=== PATIENT | female | born 1965 | race American Indian/Alaskan Native ===

== ENCOUNTER 2017-07-31 20:33 | Emergency (ER) | payer MEDICARE ==
[2017-07-31 21:10] VITALS: BP 103/69
[2017-08-01] MEDS ORDERED: NORCO 7.5/325 PO ONE (00:10)
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
--- NOTE | 2017-08-01 02:15 | XRay Report ---
FINAL REPORT EXAM: XR FOOT 2V RT HISTORY: fall with foot swelling TECHNIQUE: Two views of the right foot PRIORS: None. FINDINGS: The bones are normally aligned and mineralized. The joint spaces are well-preserved. There is no evidence of acute fracture. There is mild dorsal soft tissue swelling at the level of the metatarsals. IMPRESSION: No evidence of acute fracture or subluxation.
--- NOTE | 2017-08-01 02:15 | XRay Report ---
FINAL REPORT EXAM: XR TIBIA FIBULA 2V RT HISTORY: status post fall TECHNIQUE: AP and lateral views of the right tibia fibula PRIORS: None. FINDINGS: The bones are normally aligned and mineralized. There is no evidence of fracture or subluxation. The soft tissues are unremarkable. IMPRESSION: No evidence of acute injury.
== END 2017-08-01 02:30 | disposition home or self-care (01) ==
LOC: ED 20:33
DX: S93.401A Sprain of unspecified ligament of right ankle, initial encounter (principal); I10 Essential (primary) hypertension; F17.200 Nicotine dependence, unspecified, uncomplicated; Z88.2 Allergy status to sulfonamides
CPT/HCPCS: 99283

== ENCOUNTER 2017-11-20 09:38 | Emergency (ER) | payer MEDICARE ==
[2017-11-20] MEDS ORDERED: TORADOL IV ONE (10:21)
[2017-11-20] MEDS ORDERED: ATIVAN IV ONE (10:21)
[2017-11-20] MEDS ORDERED: BENADRYL IV ONE (10:21)
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
[2017-11-20 11:58] LABS: BUN/Creatinine Ratio 13; Blood Urea Nitrogen 9 mg/dL (7-17); Calcium 9.4 mg/dL (8.4-10.2); Hemolysis Index 109
--- NOTE | 2017-11-20 12:04 | XRay Report ---
FINAL REPORT EXAM: XR SPINE THORACIC 3V HISTORY: acute on chronic upper back pain TECHNIQUE: Four views of thoracic spine. PRIORS: None currently available. FINDINGS: Kyphotic alignment is intact. Mild degenerative discs in the mid and lower thoracic spine. No fracture. No subluxation. Prevertebral soft tissues are unremarkable. Mild levocurvature or scoliosis of the thoracolumbar spine. Bilateral laminectomies at T11 and T12. No scoliosis. No suspicious osseous lesions. IMPRESSION: Mild levo curvature or scoliosis of the thoracolumbar spine. Mild degenerative discs in the mid and lower thoracic spine.
--- NOTE | 2017-11-20 12:05 | XRay Report ---
FINAL REPORT EXAM: XR SPINE CERVICAL 2-3V HISTORY: bilateral posterior lower neck pain TECHNIQUE: Four views cervical spine. PRIORS: None currently available. FINDINGS: Mild straightening of the normal lordotic alignment probably related to anterior cervical device at C3-C6. No loosening or dislodgement. [id number] degenerative disc at C2-C3 and C6-C7. Mild posterior subluxation at C2-C3. No fracture. Prevertebral soft tissues are unremarkable. Lateral masses of C1 are aligned with C2. No scoliosis. No suspicious osseous lesions. No vertebral anomalies. IMPRESSION: Intact postsurgical changes and hardware. Straightening of the normal lordotic alignment. Degenerative discs at C2-C3 and C6-C7.
--- NOTE | 2017-11-20 12:06 | XRay Report ---
FINAL REPORT EXAM: XR CHEST 1V AP HISTORY: chest pain TECHNIQUE: Frontal chest x-ray. PRIORS: None currently available. FINDINGS: Cardiac silhouette is within normal limits. There is no effusion. There is no pneumothorax. There is no consolidation. There are no suspicious osseous lesions. IMPRESSION: No acute cardiopulmonary findings.
[2017-11-20 12:10] LABS: Basophils # (Auto) 0.1 K/mm3 (0.0-0.1); Basophils % (Auto) 0.7 % (0.0-1.8); Eosinophils # (Auto) 0.3 K/mm3 (0.0-0.4); Eosinophils % (Auto) 4.5 % (0.0-4.3); Hematocrit 40.1 % (30.3-42.9); Hemoglobin 13.3 gm/dl (10.1-14.3); Lymphocytes # (Auto) 2.6 K/mm3 (1.2-5.4); Lymphocytes % (Auto) 34.2 % (13.4-35.0); Mean Corpuscular HGB Conc 33 % (30-34); Mean Corpuscular Hemoglobin 32 pg (28-32); Mean Corpuscular Volume 95 fl (79-97); Monocytes # (Auto) 0.5 K/mm3 (0.0-0.8); Monocytes % (Auto) 6.8 % (0.0-7.3); Platelet Count 183 K/mm3 (140-440); Red Blood Count 4.21 M/mm3 (3.65-5.03); Red Cell Distribution Width 14.9 % (13.2-15.2)
[2017-11-20 14:42] VITALS: BP 136/89
== END 2017-11-20 13:35 | disposition home or self-care (01) ==
LOC: ED 09:38
DX: G44.209 Tension-type headache, unspecified, not intractable (principal); M54.2 Cervicalgia; M54.89 Other dorsalgia; R07.89 Other chest pain; I10 Essential (primary) hypertension; E11.40 Type 2 diabetes mellitus with diabetic neuropathy, unspecified; F32.9 Major depressive disorder, single episode, unspecified; F41.9 Anxiety disorder, unspecified; F17.200 Nicotine dependence, unspecified, uncomplicated; Z88.2 Allergy status to sulfonamides
CPT/HCPCS: 36415; 71045; 72040; 72072; 80048; 84484; 85025; 99284; J2060; J1200; J1885

== ENCOUNTER 2018-07-12 13:24 | Emergency (ER) | payer MEDICARE ==
--- NOTE | 2018-07-12 13:36 | Emergency Department Report ---
Blank Doc - Documentation Documentation: This is a 52-year-old female that presents with URI symptoms. This initial assessment/diagnostic orders/clinical plan/treatment(s) is/are subject to change based on patient's health status, clinical progression and re- assessment by fellow clinical providers in the ED. Further treatment and workup at subsequent clinical providers discretion. Patient/guardians urged not to elope from the ED as their condition may be serious if not clinically assessed and managed. Initial orders include: 1- Patient sent to [facility] for further evaluation and treatment 2- CXR
[2018-07-12 13:39] VITALS: BP 132/108
--- NOTE | 2018-07-12 14:15 | XRay Report ---
CHEST 2 VIEWS INDICATION: Cough. COMPARISON: 09/17/2017 FINDINGS: PA and lateral chest radiographs demonstrate stable cardiomediastinal silhouette/borderline cardiomegaly and slightly prominent lung markings centrally. No pleural effusions or CHF. Right hemidiaphragm again slightly higher than the left. Lower cervical plate and screw fusion hardware and lower thoracic spine degenerative spurring and disc narrowing again noted. CONCLUSION: No acute chest process or significant interval change with various findings, as above. Thank you for the opportunity to participate in this patient's care.
--- NOTE | 2018-07-12 15:55 | Emergency Department Report ---
- General Chief Complaint: Upper Respiratory Infection Stated Complaint: UPPER RESPIRATORY ISSUES Time Seen by Provider: 07/12/18 13:35 Source: patient Mode of arrival: Ambulatory Limitations: No Limitations - History of Present Illness Initial Comments: 52-year-old female presents to ED with a 2 week history of cough, fever, sore throat, right ear pain, wheezing. MD Complaint: fever, cough, sore throat, other (right ear pain) -: week(s) (2) Severity: moderate Consistency: constant Improves With: nothing Worsens With: nothing Associated Symptoms: fever, sore throat, cough, shortness of breath (with w heezing) - Related Data Previous Rx's Medication Instructions Recorded Last Taken Type ALPRAZolam [Xanax TAB] 0.25 mg PO Q8H PRN #9 tablet 09/19/17 Unknown Rx Clobetasol 0.05% [Temovate] 1 applic TP BID #1 tube 09/19/17 Unknown Rx Mirtazapine [Remeron] 15 mg PO QHS #30 tablet 09/19/17 Unknown Rx NIFEdipine XL [Procardia Xl] 60 mg PO Q12HR #60 tablet 09/19/17 Unknown Rx Prednisone [predniSONE 5 mg (6-Day 5 mg PO .TAPER #1 tab.ds.pk 09/19/17 Unknown Rx Pack, 21 Tabs)] diphenhydrAMINE/ZINC 2% [Banophen 1 applic TP Q8H PRN #1 tube 09/19/17 Unknown Rx Anti-Itch] hydroCHLOROthiazide [HCTZ] 25 mg PO QDAY #30 tablet 09/19/17 Unknown Rx oxyCODONE /ACETAMINOPHEN [Percocet 1 tab PO Q6H PRN #14 tablet 09/19/17 Unknown Rx 5/325 mg] ALBUTEROL Inhaler(NF) [VENTOLIN 1 puff IH Q4HR PRN #1 inha 07/12/18 Unknown Rx Inhaler(NF)] Amoxicillin [Amoxicillin TAB] 875 mg PO BID 10 Days #20 tablet 07/12/18 Unknown Rx Benzonatate [Tessalon Perles] 100 mg PO Q8HR PRN #20 capsule 07/12/18 Unknown Rx Naproxen [Naprosyn] 500 mg PO BID #20 tablet 07/12/18 Unknown Rx predniSONE [Deltasone] 50 mg PO QDAY #5 tab 07/12/18 Unknown Rx Allergies Allergy/AdvReac Type Severity Reaction Status Date / Time Sulfa (Sulfonamide Allergy Unknown Verified 09/24/16 21:41 Antibiotics) ED Review of Systems ROS: Stated complaint: UPPER RESPIRATORY ISSUES Other details as noted in HPI Comment: All other systems reviewed and negative Constitutional: fever ENT: ear pain, throat pain Respiratory: cough, wheezing ED Past Medical Hx - Past Medical History Previous Medical History?: Yes Hx Hypertension: Yes Hx Congestive Heart Failure: No Hx Diabetes: No Hx Psychiatric Treatment: Yes (anxiety) Hx Asthma: No Hx COPD: No Additional medical history: dermatiositis with lupus components - Surgical History Past Surgical History?: Yes Additional Surgical History: back surgery,herniated c-spine - Social History Smoking Status: Current Every Day Smoker Substance Use Type: Alcohol - Medications Home Medications: Home Medications Medication Instructions Recorded Confirmed Last Taken Type ALPRAZolam [Xanax TAB] 0.25 mg PO Q8H PRN #9 tablet 09/19/17 Unknown Rx Clobetasol 0.05% [Temovate] 1 applic TP BID #1 tube 09/19/17 Unknown Rx Mirtazapine [Remeron] 15 mg PO QHS #30 tablet 09/19/17 Unknown Rx NIFEdipine XL [Procardia Xl] 60 mg PO Q12HR #60 tablet 09/19/17 Unknown Rx Prednisone [predniSONE 5 mg (6-Day 5 mg PO .TAPER #1 tab.ds.pk 09/19/17 Unknown Rx Pack, 21 Tabs)] diphenhydrAMINE/ZINC 2% [Banophen 1 applic TP Q8H PRN #1 tube 09/19/17 Unknown Rx Anti-Itch] hydroCHLOROthiazide [HCTZ] 25 mg PO QDAY #30 tablet 09/19/17 Unknown Rx oxyCODONE /ACETAMINOPHEN [Percocet 1 tab PO Q6H PRN #14 tablet 09/19/17 Unknown Rx 5/325 mg] ALBUTEROL Inhaler(NF) [VENTOLIN 1 puff IH Q4HR PRN #1 inha 07/12/18 Unknown Rx Inhaler(NF)] Amoxicillin [Amoxicillin TAB] 875 mg PO BID 10 Days #20 tablet 07/12/18 Unknown Rx Benzonatate [Tessalon Perles] 100 mg PO Q8HR PRN #20 capsule 07/12/18 Unknown Rx Naproxen [Naprosyn] 500 mg PO BID #20 tablet 07/12/18 Unknown Rx predniSONE [Deltasone] 50 mg PO QDAY #5 tab 07/12/18 Unknown Rx ED Physical Exam - General Limitations: No Limitations General appearance: alert, in no apparent distress - Head Head exam: Present: atraumatic, normocephalic - Eye Eye exam: Present: normal appearance - ENT ENT exam: Present: mucous membranes moist. Absent: TM's normal bilaterally (right TM erythematous w/ bulging TM) - Neck Neck exam: Present: normal inspection - Respiratory Respiratory exam: Present: normal lung sounds bilaterally. Absent: respiratory distress, wheezes - Cardiovascular Cardiovascular Exam: Present: regular rate, normal rhythm - GI/Abdominal GI/Abdominal exam: Absent: distended - Extremities Exam Extremities exam: Present: normal inspection - Neurological Exam Neurological exam: Present: alert, oriented X3 - Psychiatric Psychiatric exam: Present: normal affect, normal mood - Skin Skin exam: Present: warm, dry, intact, normal color ED Course Vital Signs 07/12/18 13:36 Temperature 98.1 F Pulse Rate 84 Respiratory 18 Rate Blood Pressure 132/108 O2 Sat by Pulse 97 Oximetry ED Medical Decision Making - Radiology Data Radiology results: report reviewed, image reviewed - Medical Decision Making - CXR negative - Right otitis media - no wheezing at this time - will d/c w/ prednisione, tessalon, albuterol, amoxil - outpt f/u advised - Differential Diagnosis bronchitis, OM, pneumonia Critical care attestation.: If time is entered above; I have spent that time in minutes in the direct care of this critically ill patient, excluding procedure time. ED Disposition Clinical Impression: Bronchitis, Otitis media Disposition: DC-01 TO HOME OR SELFCARE Is pt being admited?: No Condition: Stable Instructions: Otitis Media (ED), Acute Bronchitis (ED) Prescriptions: Amoxicillin [Amoxicillin TAB] 875 mg PO BID 10 Days #20 tablet predniSONE [Deltasone] 50 mg PO QDAY #5 tab Naproxen [Naprosyn] 500 mg PO BID #20 tablet Benzonatate [Tessalon Perles] 100 mg PO Q8HR PRN #20 capsule PRN Reason: Cough ALBUTEROL Inhaler(NF) [VENTOLIN Inhaler(NF)] 1 puff IH Q4HR PRN #1 inha PRN Reason: Wheezing Referrals: [facility] MD JAVY [Primary Care Provider] - 3-5 Days PRIMARY CAREMD [Referring] - 3-5 Days Time of Disposition: 15:55
== END 2018-07-12 16:05 | disposition home or self-care (01) ==
LOC: ED 13:24 → MERGE 13:24 → ED 16:05
DX: J40 Bronchitis, not specified as acute or chronic (principal); H66.91 Otitis media, unspecified, right ear; I10 Essential (primary) hypertension; F41.9 Anxiety disorder, unspecified; F17.200 Nicotine dependence, unspecified, uncomplicated
CPT/HCPCS: 71046

== ENCOUNTER 2018-11-22 05:15 | Emergency (ER) | payer MEDICARE ==
[2018-11-22 06:03] LABS: Basophils % (Auto) 0.4 % (0.0-1.8); Eosinophils # (Auto) 0.1 K/mm3 (0.0-0.4); Eosinophils % (Auto) 1.5 % (0.0-4.3); Hematocrit 41.3 % (30.3-42.9); Hemoglobin 13.9 gm/dl (10.1-14.3); Lymphocytes # (Auto) 2.1 K/mm3 (1.2-5.4); Lymphocytes % (Auto) 20.9 % (13.4-35.0); Mean Corpuscular HGB Conc 34 % (30-34); Mean Corpuscular Volume 92 fl (79-97); Monocytes # (Auto) 0.6 K/mm3 (0.0-0.8); Monocytes % (Auto) 5.8 % (0.0-7.3); Platelet Count 200 K/mm3 (140-440); Red Blood Count 4.51 M/mm3 (3.65-5.03); Red Cell Distribution Width 13.8 % (13.2-15.2)
[2018-11-22 06:21] LABS: Calcium 9.7 mg/dL (8.4-10.2)
[2018-11-22 07:29] VITALS: BP 133/92
[2018-11-22] MEDS ORDERED: PEPCID IV ONE (08:03)
[2018-11-22] MEDS ORDERED: SOLU-Medrol IV ONE (08:03)
[2018-11-22] MEDS ORDERED: BENADRYL IV ONE (08:03)
[2018-11-22] MEDS ORDERED: NACL 0.9% 500 ML 500 ML IV ONE ×2 (08:05→10:22)
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
[2018-11-22] MEDS ORDERED: TORADOL IV ONE (09:13)
[2018-11-22 12:25] LABS: Bilirubin,Urine NEG (Negative); Blood,Urine NEG (Negative); Color,Urine Yellow (Yellow); Mucus,Urine FEW /HPF; Protein,Urine <15 mg/dL mg/dL (Negative)
[2018-11-22 12:33] LABS: Amphetamine Screen,Urine PRESUMPTIVE NEGATIVE; Benzodiazepines Screen,Urine PRESUMPTIVE NEGATIVE; Cannabinoid Screen,Urine PRESUMPTIVE NEGATIVE; Methadone Screen,Urine PRESUMPTIVE NEGATIVE; Opiate Screen,Urine PRESUMPTIVE NEGATIVE
[2018-11-22 12:47] LABS: Cocaine Screen,Urine PRESUMPTIVE POSITIVE
== END 2018-11-22 15:00 | disposition home or self-care (01) ==
LOC: ED 05:15
DX: E86.0 Dehydration (principal); A18.4 Tuberculosis of skin and subcutaneous tissue; M25.50 Pain in unspecified joint; F12.10 Cannabis abuse, uncomplicated; I10 Essential (primary) hypertension; F32.9 Major depressive disorder, single episode, unspecified; F41.9 Anxiety disorder, unspecified; F17.200 Nicotine dependence, unspecified, uncomplicated; Z79.899 Other long term (current) drug therapy; Z88.2 Allergy status to sulfonamides
CPT/HCPCS: 36415; 80048; 80307; 81001; 85025; 96361; 96374; 96375; 99283; J1200; J1885; J2930; J7040; 80320; G0480

== ENCOUNTER 2018-12-26 16:08 | Emergency (ER) | payer MEDICARE ==
[2018-12-26] MEDS ORDERED: APRESOLINE IV ONE (16:33)
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
[2018-12-26 17:25] LABS: Alanine Aminotransferase 19 units/L (7-56); Albumin 4.2 g/dL (3.9-5); BUN/Creatinine Ratio 14; Blood Urea Nitrogen 13 mg/dL (7-17); Hemolysis Index 18
[2018-12-26 17:35] LABS: Basophils % (Auto) 0.4 % (0.0-1.8); Eosinophils # (Auto) 0.1 K/mm3 (0.0-0.4); Eosinophils % (Auto) 0.8 % (0.0-4.3); Hematocrit 41.7 % (30.3-42.9); Lymphocytes # (Auto) 2.1 K/mm3 (1.2-5.4); Lymphocytes % (Auto) 33.7 % (13.4-35.0); Mean Corpuscular HGB Conc 34 % (30-34); Mean Corpuscular Volume 92 fl (79-97); Monocytes # (Auto) 0.5 K/mm3 (0.0-0.8); Monocytes % (Auto) 7.5 % (0.0-7.3); Platelet Count 212 K/mm3 (140-440); Red Blood Count 4.55 M/mm3 (3.65-5.03); Red Cell Distribution Width 15.3 % (13.2-15.2)
[2018-12-26] MEDS ORDERED: TYLENOL ONE (18:51)
[2018-12-26] MEDS ORDERED: TYLENOL PO ONE (18:56)
[2018-12-26 20:13] VITALS: BP 180/93
== END 2018-12-26 20:15 | disposition home or self-care (01) ==
LOC: ED 16:08
DX: I10 Essential (primary) hypertension (principal); F32.9 Major depressive disorder, single episode, unspecified; F41.9 Anxiety disorder, unspecified; G62.9 Polyneuropathy, unspecified; I34.1 Nonrheumatic mitral (valve) prolapse; M32.9 Systemic lupus erythematosus, unspecified; F17.200 Nicotine dependence, unspecified, uncomplicated; F12.10 Cannabis abuse, uncomplicated; Z79.899 Other long term (current) drug therapy; Z88.2 Allergy status to sulfonamides
CPT/HCPCS: 36415; 80053; 84484; 85025; 93005; 93010